=== PATIENT | male | born 1945 | race Caucasian/White ===

== ENCOUNTER 2016-12-17 13:58 | Emergency (ER) | payer OTHER ==
[~2016-12-17 13:58] MED LIST: ALPR.25 PO; ENAL5TAB PO; FLON0.053; PHEN37.5 PO; PROT40TA PO; ZOLP10TA3 PO
[2016-12-17 14:07] VITALS: BP 126/74; PULSE 73; RESP 20; TEMP 98.2; O2SAT 95
[2016-12-17] MEDS ORDERED: SODIUM CHLORIDE 0.9% FLUSH 10 ML FLUSH IV FLUSH PRN (15:45)
--- NOTE | 2016-12-17 15:56 | PD ---
HPI Chief Complaint: Pain: Acute or Chronic Time Seen by Provider: 15:39 Travel History International Travel<30 days: No Contact w/Intl Traveler<30days: No Traveled to known affect area: No History of Present Illness HPI 71-year-old male here for evaluation of right/mid abdominal pain that radiates to his right groin. Symptoms started this morning after waking up. He denies trauma. No recent heavy lifting. He is unable to describe the pain, however states it is worse with movement and palpation. He denies history of abdominal surgeries. No urinary symptoms. No fevers or chills. PFSH Past Medical History Cancer: No Cardiovascular Problems: No Diabetes: No Endocrine: No Fibromyalgia: Yes Genitourinary: No Hepatitis: No Hiatal Hernia: No Hypertension: Yes Immune Disorder: No Musculoskeletal: Yes (Fibromyalgia ) Neurologic: No Psychiatric: No Respiratory: No Thyroid Disease: No Past Surgical History Ear Surgery: Yes (SEPTOLPLASTY, EPHRAIM ENDOSCOPIC SINUS SX 1990) Eye Surgery: Yes (LENS IMPLANTS 2007) Joint Replacement: No Tonsillectomy: Yes Tympanostomy Tube: Yes Other Surgery: Yes ("SINUSIS") Social History Alcohol Use: Yes (TWICE PER [facility]) Tobacco Use: No Substance Use: No Allergies-Medications (Allergen,Severity, Reaction): Coded Allergies: Codeine (Verified Allergy, Severe, SOB, 12/17/16) Salicylates (Verified Allergy, Unknown, PER ALLERGY TEST, 12/17/16) Uncoded Allergies: SILVADINE (Allergy, Unknown, 05/04/14) Reported Meds & Prescriptions Reported Meds & Active Scripts Active Reported Motrin Ib (Ibuprofen) 200 Mg Tablet 800 Mg Pe PO DIRECTED Ambien (Zolpidem Tartrate) 5 Mg Tab 5 Mg PO HS PRN Protonix (Pantoprazole Sodium) 40 Mg Tab 40 Mg PO DAILY Flonase Nasal [place] (Fluticasone Nasal [place]) 50 Mcg/Act [place] 50 Mcg EACH NARE BID Enalapril (Enalapril Maleate) 5 Mg Tab 5 Mg PO DAILY Xanax (Alprazolam) 0.25 Mg Tab 0.25 Mg PO HS PRN Review of Systems Except as stated in HPI: all other systems reviewed are Neg Physical Exam Narrative GENERAL: Well-developed, well-nourished, sitting comfortably on stretcher, no apparent distress. SKIN: Focused skin assessment warm/dry. No rashes. HEAD: Atraumatic. Normocephalic. EYES: Pupils equal and round. No scleral icterus. No injection or drainage. ENT: Mucous membranes pink and moist. NECK: Trachea midline. No JVD. CARDIOVASCULAR: Regular rate and rhythm. Bilateral dorsalis pedis pulses are brisk and equal. RESPIRATORY: No accessory muscle use. Clear to auscultation. Breath sounds equal bilaterally. GASTROINTESTINAL: Abdomen soft, nontender, nondistended. Normal bowel sounds. No hernias. : Normal exam. No hernias. No masses. MUSCULOSKELETAL: There is tenderness at the right anterior superior iliac crest as well as mild tenderness in the right inguinal region. There are no hernias. No obvious masses. No warmth or erythema. There is normal range of motion in all joints and extremities. No CVA tenderness. NEUROLOGICAL: Awake and alert. No obvious cranial nerve deficits. Motor grossly within normal limits. Normal speech. PSYCHIATRIC: Appropriate mood and affect; insight and judgment normal. Data Data Last Documented VS Vital Signs Date Time Temp Pulse Resp B/P Pulse Ox O2 Delivery O2 Flow Rate FiO2 12/17/16 16:08 98 Room Air 12/17/16 14:07 98.2 73 20 126/74 Orders Complete Blood Count With Diff (12/17/16 15:45) Comprehensive Metabolic Panel (12/17/16 15:45) Lipase (12/17/16 15:45) Prothrombin Time / Inr (Pt) (12/17/16 15:45) Act Partial Throm Time (Ptt) (12/17/16 15:45) Urinalysis - C+S If Indicated (12/17/16 15:45) Ct Abd/Pel W Iv Contrast(Rout) (12/17/16 15:45) Iv Access Insert/Monitor (12/17/16 15:45) Ecg Monitoring (12/17/16 15:45) Oximetry (12/17/16 15:45) Sodium Chloride 0.9% Flush (Ns Flush) (12/17/16 15:45) Iohexol 350 Inj (Omnipaque 350 Inj) (12/17/16 17:10) Labs Laboratory Tests Test 12/17/16 12/17/16 15:50 16:08 Urine Color YELLOW Urine Turbidity CLEAR Urine pH 6.5 Urine Specific Newman 1.018 Urine Protein NEG mg/dL Urine Glucose (UA) NEG mg/dL Urine Ketones NEG mg/dL Urine Occult Blood NEG Urine Nitrite NEG Urine Bilirubin NEG Urine Leukocyte Esterase NEG Urine Squamous Epithelial 0-5 /hpf Cells Microscopic Urinalysis Comment CULT NOT INDICATED White Blood Count 7.8 TH/MM3 Red Blood Count 4.62 MIL/MM3 Hemoglobin 14.9 GM/DL Hematocrit 45.2 % Mean Corpuscular Volume 97.7 FL Mean Corpuscular Hemoglobin 32.3 PG Mean Corpuscular Hemoglobin 33.1 % Concent Red Cell Distribution Width 13.6 % Platelet Count 226 TH/MM3 Mean Platelet Volume 8.4 FL Neutrophils (%) (Auto) 55.3 % Lymphocytes (%) (Auto) 30.4 % Monocytes (%) (Auto) 11.5 % Eosinophils (%) (Auto) 2.3 % Basophils (%) (Auto) 0.5 % Neutrophils # (Auto) 4.3 TH/MM3 Lymphocytes # (Auto) 2.4 TH/MM3 Monocytes # (Auto) 0.9 TH/MM3 Eosinophils # (Auto) 0.2 TH/MM3 Basophils # (Auto) 0.0 TH/MM3 CBC Comment DIFF FINAL Differential Comment Prothrombin Time 10.9 SEC Prothromb Time International 1.0 RATIO Ratio Activated Partial 25.7 SEC Thromboplast Time Sodium Level 141 MEQ/L Potassium Level 3.6 MEQ/L Chloride Level 104 MEQ/L Carbon Dioxide Level 29.1 MEQ/L Anion Gap 8 MEQ/L Blood Urea Nitrogen 24 MG/DL Creatinine 1.30 MG/DL Estimat Glomerular Filtration 55 ML/MIN Rate Random Glucose 83 MG/DL Calcium Level 8.8 MG/DL Total Bilirubin 0.5 MG/DL Aspartate Amino Transf 27 U/L (AST/SGOT) Alanine Aminotransferase 39 U/L (ALT/SGPT) Alkaline Phosphatase 65 U/L Total Protein 7.4 GM/DL Albumin 3.3 GM/DL Lipase 183 U/L [facility] Medical Decision Making Medical Screen Exam Complete: Yes Emergency Medical Condition: Yes Differential Diagnosis Musculoskeletal pain, nephrolithiasis, ureterolithiasis, UTI, colitis/ diverticulitis/appendicitis less likely, bone lesion Narrative Course Vital signs show heart rate 73, blood pressure 126/74, pulse ox 98% on room air , oral temp of 98.2F. CBC shows WBC 7.8, hemoglobin 14.9, hematocrit 45.2, platelets 226. CMP is unremarkable. Lipase is 183. UA is within normal limits. Not suggestive of UTI. No hematuria. CT abdomen pelvis: Normal exam except for mild fatty liver. Patient and the patient's were made aware of all findings. He is resting comfortably. He is ambulating to and from the restroom without difficulty and without assistance. He was provided a copy of his CT abdomen and pelvis report. He is stable for discharge home with outpatient follow-up with his primary care physician this week. I will give him a prescription for pain medication and a muscle relaxant. He was also encouraged to take ibuprofen. Patient informed on when to return to the emergency department. He verbalizes understanding and agreement with plan. Diagnosis Primary Impression: Right groin pain Referrals: Primary Care Physician 1 week Additional Instructions: Follow-up with your primary care physician this week. Return to the emergency department for worsening symptoms or any other concerns. Scripts Methocarbamol (Robaxin)500 Mg Mgw131 Mg PO TID #15 TAB Ref 0 Prov:Jeremiah Su MD 12/17/16 Tramadol 50 Mg Tab50 Mg PO Q6H PRN (PAIN) #15 TAB Ref 0 Prov:Jeremiah Su MD 12/17/16 Disposition: DISCHARGE HOME Condition: Stable Jeremiah Su MD Dec 17, 2016 15:56
[2016-12-17] MEDS ORDERED: ALPR.25 PO (15:57)
[2016-12-17] MEDS ORDERED: ENAL5TAB PO (15:57)
[2016-12-17] MEDS ORDERED: FLUT1SPR5 EACH NARE (15:57)
[2016-12-17] MEDS ORDERED: AMBI5TAB PO (15:57)
[2016-12-17] MEDS ORDERED: IBUP-1129 PO (15:57)
[2016-12-17] MEDS ORDERED: PROT40TA PO (15:57)
[2016-12-17 16:08] VITALS: O2SAT 98
[2016-12-17 16:20] LABS: AUTOMATED NEUTROPHIL # 4.3 TH/MM3 (1.8-7.7); BASOPHIL % 0.5 % (0.0-2.0); EOSINOPHIL # 0.2 TH/MM3 (0-0.4); EOSINOPHIL % 2.3 % (0.0-4.0); HEMATOCRIT 45.2 % (39.0-51.0); HEMO FLAGS DIFF FINAL; LYMPH % 30.4 % (9.0-44.0); LYMPHOCYTE # 2.4 TH/MM3 (1.0-4.8); MEAN CELL VOLUME 97.7 FL (80.0-100.0); MEAN CORPUSCULAR HEMOGLOBIN 32.3 PG (27.0-34.0); MEAN CORPUSCULAR HGB CONC 33.1 % (32.0-36.0); MONO % 11.5 % (0.0-8.0); NEUT % 55.3 % (16.0-70.0); PLATELET COUNT 226 TH/MM3 (150-450); RED BLOOD COUNT 4.62 MIL/MM3 (4.50-5.90); RED CELL DISTRIBUTION WIDTH 13.6 % (11.6-17.2); WHITE BLOOD COUNT 7.8 TH/MM3 (4.0-11.0)
[2016-12-17 16:29] LABS: CHLORIDE 104 MEQ/L (98-107); POTASSIUM 3.6 MEQ/L (3.5-5.1); SODIUM (NA) 141 MEQ/L (136-145)
[2016-12-17 16:33] LABS: BLOOD, URINE NEG (NEG); GLUCOSE,URINE NEG (NEG); KETONE, URINE NEG (NEG); NITRITE,URINE NEG (NEG); PH, URINE 6.5 (5.0-8.5)
[2016-12-17 16:35] LABS: ANION GAP 8 MEQ/L (5-15); APTT (PATIENT) 25.7 SEC (24.3-30.1); BICARBONATE 29.1 MEQ/L (21.0-32.0); BLOOD UREA NITROGEN 24 MG/DL (7-18); PROTHROMBIN TIME - PATIENT 10.9 SEC (9.8-11.6)
[2016-12-17 16:37] LABS: ALT (GPT) 39 U/L (12-78); AST (GOT) 27 U/L (15-37)
[2016-12-17 16:38] LABS: GLOMERULAR FILTRATION RATE 55 ML/MIN (>89)
[2016-12-17 16:39] LABS: TOTAL BILIRUBIN ADULT 0.5 MG/DL (0.2-1.0)
[2016-12-17 16:40] LABS: ALKALINE PHOSPHATASE 65 U/L (45-117)
[2016-12-17 16:42] LABS: COMMENT (UR) CULT NOT INDICATED; CULTURE IF INDICATED CULT NOT INDICATED; SQUAMOUS EPITHELIAL CELL URINE 0-5 /hpf (0-5); URINE COLOR YELLOW (YELLW/STRAW)
[2016-12-17] MEDS ORDERED: IOHEXOL 350 MG/ML 10 ML VIAL (for RAD DIAG) IV ONE (17:10)
--- NOTE | 2016-12-17 17:20 | RADRPT ---
EXAM DATE/TIME: 12/17/2016 16:57 [facility] COMPARISON: No previous studies available for comparison. INDICATIONS : Diffuse abdominal pain. IV CONTRAST: 90 cc Omnipaque 350 (iohexol) IV ORAL CONTRAST: No oral contrast ingested. RADIATION DOSE: 16.01 CTDIvol (mGy) MEDICAL HISTORY : Hypertension. Gastroesophageal reflux disease. SURGICAL HISTORY : None. ENCOUNTER: Initial ACUITY: 2 days PAIN SCALE: 3/10 LOCATION: abdomen TECHNIQUE: Volumetric scanning of the abdomen and pelvis was performed. Using automated exposure control and ad justment of the mA and/or kV according to patient size, radiation dose was kept as low as reasonably achievable to obtain optimal diagnostic quality images. DICOM format image data is available electro nically for review and comparison. FINDINGS: LOWER LUNGS: The visualized lower lungs are clear. LIVER: Homogeneously lower density with a solitary 6 mm hyperdense lesion likely hemangioma. There is no di lation of the biliary tree. No calcified gallstones. SPLEEN: Normal size without lesion. PANCREAS: Within normal limits. KIDNEYS: Normal in size and shape. There is no mass, stone or hydronephrosis. ADRENAL GLANDS: Within normal limits. VASCULAR: There is no aortic aneurysm. BOWEL/MESENTERY: The stomach, small bowel, and colon demonstrate no acute abnormality. There is no free intraperitone al air or fluid. ABDOMINAL WALL: Within normal limits. RETROPERITONEUM: There is no lymphadenopathy. BLADDER: No wall thickening or mass. REPRODUCTIVE: Within normal limits. INGUINAL: There is no lymphadenopathy or hernia. MUSCULOSKELETAL: Within normal limits for patient age. CONCLUSION: Normal examination except for mildly fatty liver. Aguilar Russell MD on December 17, 2016 at 17:16 Board Certified Radiologist. This report was verified electronically.
[2016-12-17] MEDS ORDERED: TRAM50TA PO (17:43)
[2016-12-17] MEDS ORDERED: ROBA500T PO (17:43)
[2016-12-17 17:49] VITALS: BP 147/88; PULSE 64; RESP 16; O2SAT 98
== END 2016-12-17 17:57 | disposition home or self-care (01) ==
LOC: HEDF 13:58 → PHED 17:57
DX: R10.31 Right lower quadrant pain (principal); M79.7 Fibromyalgia; I10 Essential (primary) hypertension; K76.0 Fatty (change of) liver, not elsewhere classified
CPT/HCPCS: 74177; 80053; 81001; 83690; 85025; 85610; 85730; 99284; Q9967

== ENCOUNTER 2017-03-16 16:29 | Emergency (ER) | payer OTHER ==
[~2017-03-16] VITALS: Ht 170.2 cm; Wt 93.0 kg
[~2017-03-16 16:29] MED LIST changes: +AMBI5TAB PO; -FLON0.053; +FLUT1SPR5 EACH NARE; +IBUP-1129 PO; -PHEN37.5 PO; +ROBA500T PO; +TRAM50TA PO; -ZOLP10TA3 PO
[2017-03-16 16:57] VITALS: BP 129/71; PULSE 82; RESP 18; TEMP 98; O2SAT 96
[2017-03-16] MEDS ORDERED: SODIUM CHLORIDE 0.9% FLUSH 10 ML FLUSH IVF PRN (18:15)
--- NOTE | 2017-03-16 18:15 | PD ---
HPI . Shortness of breath Chief Complaint: Respiratory Symptoms Time Seen by Provider: 18:09 Travel History International Travel<30 days: No Contact w/Intl Traveler<30days: No Traveled to known affect area: No History of Present Illness HPI This patient presents with about a 3 day history of shortness of breath. He denies any associated cough. No fever. He states that his chest muscles felt sore couple of days ago as if he had overuse them. He states that the next day his abdominal muscles were sore and then his leg muscles were sore but now all of the soreness has gone away. However, he continues to have dyspnea. The dyspnea is exacerbated by lying flat on his back and is improved by lying on his side. His symptoms have been mild. PFSH Past Medical History Anxiety: Yes Cancer: No Cardiovascular Problems: Yes (HTN) Diabetes: No Endocrine: No Fibromyalgia: Yes GERD: Yes Genitourinary: No Hepatitis: No Hiatal Hernia: No Hypertension: Yes Immune Disorder: No Musculoskeletal: Yes (Fibromyalgia ) Neurologic: No Psychiatric: No Respiratory: Yes (allergies, spasmatic bronchitis ) Thyroid Disease: No Past Surgical History Ear Surgery: Yes (SEPTOLPLASTY, EPHRAIM ENDOSCOPIC SINUS SX 1990) Eye Surgery: Yes (LENS IMPLANTS 2007) Joint Replacement: No Tonsillectomy: Yes Tympanostomy Tube: Yes Other Surgery: Yes ("SINUSIS", RIGHT EAR TUBES) Social History Alcohol Use: Yes (TWICE PER WK) Tobacco Use: No Substance Use: No Allergies-Medications (Allergen,Severity, Reaction): Coded Allergies: codeine (Unverified Allergy, Severe, SOB, 03/16/17) bismuth subsalicylate (Unverified Allergy, Unknown, PER ALLERGY TEST, ) mesalamine (Unverified Allergy, Unknown, PER ALLERGY TEST, 03/16/17) Uncoded Allergies: SILVADINE (Allergy, Unknown, 05/04/14) Reported Meds & Prescriptions Reported Meds & Active Scripts Active Reported Ambien (Zolpidem Tartrate) 5 Mg Tab 5 Mg PO HS PRN Protonix (Pantoprazole Sodium) 40 Mg Tab 40 Mg PO DAILY Flonase Nasal [place] (Fluticasone Nasal [place]) 50 Mcg/Act [place] 50 Mcg EACH NARE BID Enalapril (Enalapril Maleate) 5 Mg Tab 5 Mg PO DAILY Xanax (Alprazolam) 0.25 Mg Tab 0.25 Mg PO HS PRN Review of Systems Except as stated in HPI: all other systems reviewed are Neg General / Constitutional: No: Fever, Chills Cardiovascular: Positive: Chest Pain or Discomfort Respiratory: Positive: Shortness of Breath, No: Cough, Wheezing Gastrointestinal: No: Nausea, Vomiting, Diarrhea Physical Exam Narrative GENERAL: This is a healthy-appearing 71-year-old man who is in no acute distress. SKIN: warm/dry. No rash or lesions. He is very andrea. HEAD: Normocephalic. Atraumatic. EYES: Pupils equal and round. No scleral icterus. No injection or drainage. ENT: No nasal bleeding or discharge. Mucous membranes pink and moist. NECK: Trachea midline. Full range of motion without pain.. CARDIOVASCULAR: Regular rate and rhythm. Heart sounds are normal. RESPIRATORY: No accessory muscle use. Clear to auscultation. Breath sounds equal bilaterally. He is able to speak in complete sentences without any difficulty. His oxygen saturation is in the upper 90s on room air. GASTROINTESTINAL: Abdomen soft. Nontender. Bowel sounds present. Nondistended. MUSCULOSKELETAL: No obvious deformities. NEUROLOGICAL: Awake and alert. No obvious cranial nerve deficits. Motor grossly within normal limits. Normal speech. PSYCHIATRIC: Appropriate mood and affect; insight and judgment normal. Data Data Last Documented VS Vital Signs Date Time Temp Pulse Resp B/P (MAP) Pulse Ox O2 Delivery O2 Flow Rate FiO2 03/16/17 18:29 97 Room Air 03/16/17 16:57 98.0 82 18 129/71 (90) Orders Orders Complete Blood Count With Diff (03/16/17 18:09) Basic Metabolic Panel (Bmp) (03/16/17 18:09) B-Type Natriuretic Peptide (03/16/17 18:09) D-Dimer (03/16/17 18:09) Magnesium (Mg) (03/16/17 18:09) Troponin I (03/16/17 18:) Arterial Blood Gas (Abg) (03/16/17 18:09) Iv Access Insert/Monitor (03/16/17 18:09) Electrocardiogram (03/16/17 18:09) Ecg Monitoring (03/16/17 18:09) Oximetry (03/16/17 18:09) Chest, Single Ap (03/16/17 18:09) Sodium Chloride 0.9% Flush (Ns Flush) (03/16/17 18:15) Labs Laboratory Tests Test 03/16/17 18:20 03/16/17 18:22 White Blood Count 7.0 TH/MM3 Red Blood Count 4.51 MIL/MM3 Hemoglobin 15.0 GM/DL Hematocrit 43.2 % Mean Corpuscular Volume 95.7 FL Mean Corpuscular Hemoglobin 33.3 PG Mean Corpuscular Hemoglobin Concent 34.8 % Red Cell Distribution Width 12.6 % Platelet Count 206 TH/MM3 Mean Platelet Volume 8.4 FL Neutrophils (%) (Auto) 51.7 % Lymphocytes (%) (Auto) 32.7 % Monocytes (%) (Auto) 12.7 % Eosinophils (%) (Auto) 2.2 % Basophils (%) (Auto) 0.7 % Neutrophils # (Auto) 3.6 TH/MM3 Lymphocytes # (Auto) 2.3 TH/MM3 Monocytes # (Auto) 0.9 TH/MM3 Eosinophils # (Auto) 0.2 TH/MM3 Basophils # (Auto) 0.0 TH/MM3 CBC Comment DIFF FINAL Differential Comment D-Dimer Quantitative (PE/DVT) LESS THAN 0.19 MG/L FEU Blood Urea Nitrogen 20 MG/DL Creatinine 1.10 MG/DL Random Glucose 88 MG/DL Calcium Level 8.5 MG/DL Magnesium Level 2.4 MG/DL Sodium Level 135 MEQ/L Potassium Level 4.0 MEQ/L Chloride Level 100 MEQ/L Carbon Dioxide Level 28.5 MEQ/L Anion Gap 7 MEQ/L Estimat Glomerular Filtration Rate 66 ML/MIN Troponin I LESS THAN 0.02 NG/ML B-Type Natriuretic Peptide 44 PG/ML Blood Gas Puncture Site LT RADIAL Blood Gas Patient Temperature 98.6 Blood Gas HCO3 25 mmol/L Blood Gas Base Excess 1.3 mmol/L Blood Gas Oxygen Saturation 94 % Arterial Blood pH 7.46 Arterial Blood Partial Pressure CO2 35 mmHG Arterial Blood Partial Pressure O2 82 mmHG Arterial Blood Oxygen Content 20.3 Vol % Arterial Blood Carboxyhemoglobin 1.4 % Arterial Blood Methemoglobin 1.1 % Blood Gas Hemoglobin 15.3 G/DL Oxygen Delivery Device ROOM AIR Blood Gas Inspired Oxygen 21 % MDM Medical Decision Making Medical Screen Exam Complete: Yes Emergency Medical Condition: Yes Differential Diagnosis Differential diagnosis of dyspnea includes but is not limited to congestive heart failure, pneumonia, wheezing, pneumothorax, pulmonary embolism Narrative Course This patient presents with the chief complaint of dyspnea. He looks well. CBC & BMP Diagram 03/16/17 18:20 Calcium Level 8.5, Magnesium Level 2.4 ABG Test 03/16/17 18:22 Arterial Blood Carboxyhemoglobin 1.4 % Arterial Blood Methemoglobin 1.1 % Arterial Blood Oxygen Content 20.3 Vol % H Arterial Blood Partial Pressure CO2 35 mmHG L Arterial Blood Partial Pressure O2 82 mmHG Arterial Blood pH 7.46 H Blood Gas Base Excess 1.3 mmol/L Blood Gas HCO3 25 mmol/L Blood Gas Hemoglobin 15.3 G/DL Blood Gas Inspired Oxygen 21 % Blood Gas Oxygen Saturation 94 % Oxygen Delivery Device ROOM AIR D-dimer is normal. BNP is 44. Troponin is less than 0.02. No etiology for this patient's dyspnea has been found. The history, exam, diagnostic testing, and current condition do not suggest any significant pathology to warrant further testing, continued ED treatment, admission, or surgical evaluation at this point. No EMC was found. The patient 's condition is stable and appropriate for discharge. Diagnosis Primary Impression: Dyspnea Qualified Codes: R06.00 - Dyspnea, unspecified Patient Instructions: Dyspnea (DC), General Instructions Disposition: 01 DISCHARGE HOME Condition: Stable Safia Hermosillo MD Mar 16, 2017 18:15
[2017-03-16 18:28] LABS: BLOOD GAS BASE EXCESS 1.3 mmol/L (-2-2); BLOOD GAS CARBOXYHEMOGLOBIN 1.4 % (0-4); BLOOD GAS HCO3 25 mmol/L (22-26); BLOOD GAS METHEMOGLOBIN 1.1 % (0-2); BLOOD GAS O2 HGB SATURATION 94 % (90-100); BLOOD GAS OXYGEN CONTENT 20.3 Vol % (12.0-20.0); BLOOD GAS PCO2 35 mmHG (38-42); BLOOD GAS PO2 82 mmHG (61-120); BLOOD GAS TOTAL HGB 15.3 G/DL (12.0-16.0); CRITICAL VALUE NO; DRAW SITE LT RADIAL; FIO2 21 %; NUMBER OF ARTERIAL PUNCTURES 1; OXYGEN DEVICE ROOM AIR; STAT YES; TEMP CORR TO 98.6; ULNAR PULSE PRESENT
--- NOTE | 2017-03-16 18:49 | RADRPT ---
EXAM DATE/TIME: 03/16/2017 18:40 [facility] COMPARISON: No previous studies available for comparison. INDICATIONS : Short of breath. MEDICAL HISTORY : None. SURGICAL HISTORY : None. ENCOUNTER: Initial ACUITY: 1 day PAIN SCORE: 2/10 LOCATION: Bilateral chest FINDINGS: A single view of the chest demonstrates the lungs to be symmetrically aerated without evidence of mas s, infiltrate or effusion. The cardiomediastinal contours are unremarkable. Osseous structures are intact. CONCLUSION: No acute disease. hCaitanya Curran MD on March 16, 2017 at 18:48 Board Certified Radiologist. This report was verified electronically.
[2017-03-16 18:53] LABS: AUTOMATED NEUTROPHIL # 3.6 TH/MM3 (1.8-7.7); BASOPHIL % 0.7 % (0.0-2.0); EOSINOPHIL # 0.2 TH/MM3 (0-0.4); EOSINOPHIL % 2.2 % (0.0-4.0); HEMATOCRIT 43.2 % (39.0-51.0); HEMO FLAGS DIFF FINAL; LYMPH % 32.7 % (9.0-44.0); LYMPHOCYTE # 2.3 TH/MM3 (1.0-4.8); MEAN CELL VOLUME 95.7 FL (80.0-100.0); MEAN CORPUSCULAR HEMOGLOBIN 33.3 PG (27.0-34.0); MEAN CORPUSCULAR HGB CONC 34.8 % (32.0-36.0); MONO % 12.7 % (0.0-8.0); NEUT % 51.7 % (16.0-70.0); PLATELET COUNT 206 TH/MM3 (150-450); RED BLOOD COUNT 4.51 MIL/MM3 (4.50-5.90); RED CELL DISTRIBUTION WIDTH 12.6 % (11.6-17.2)
[2017-03-16 19:02] LABS: CHLORIDE 100 MEQ/L (98-107); SODIUM (NA) 135 MEQ/L (136-145)
[2017-03-16 19:05] LABS: ANION GAP 7 MEQ/L (5-15); BICARBONATE 28.5 MEQ/L (21.0-32.0); BLOOD UREA NITROGEN 20 MG/DL (7-18); MAGNESIUM 2.4 MG/DL (1.5-2.5)
[2017-03-16 19:08] LABS: GLOMERULAR FILTRATION RATE 66 ML/MIN (>89)
[2017-03-16 19:34] VITALS: BP 141/80; PULSE 65; RESP 18; O2SAT 99
--- NOTE | 2017-03-17 07:50 | EKG ---
Date Performed: 03/16/2017 Time Performed: 18:15:15 PTAGE: 71 years EKG: Baseline artifact present Sinus rhythm WITH FIRST DEGREE AV BLOCK ABNORMAL ECG No significant change from prior electrocardiogram. PREVIOUS TRACING : 08/18/2013 07.49 DOCTOR: Christiano Duong Interpretating Date/Time 03/17/2017 07:49:37
== END 2017-03-16 19:49 | disposition home or self-care (01) ==
LOC: PHED 16:29
DX: R06.00 Dyspnea, unspecified (principal); R94.31 Abnormal electrocardiogram [ECG] [EKG]; I10 Essential (primary) hypertension
CPT/HCPCS: 36600; 71010; 80048; 82805; 83735; 83880; 84484; 85025; 85379; 93005